=== PATIENT | female | born 2000 | race Caucasian/White ===

== ENCOUNTER 2024-02-27 16:06 | Emergency (ER) | payer MEDICAID, SELFPAY ==
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
[2024-02-27 16:12] VITALS: BP 106/70; BP 118/82; PULSE 108; PULSE 92; RESP 16; TEMP 36.3; O2SAT 100; O2SAT 99; BMI 19.3
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
[2024-02-27] MEDS: Acetaminophen 325 MG TABLET 975 MG PO (16:38)
--- OUTSIDE RECORDS SUMMARY | 2024-02-27 16:41 | XMS_ITS | Patient Health Record ---
Author Organization [facility] - So [facility] Address [address] [place] [address] Care Team Providers Care Nutrition Aide Name Role Phone Marion Cartwright Unavailable [phone] Allergies Allergen (clinical drug ingredient) Drug/Non Drug Allergy documented on EMR Reaction Allergy Type Onset Date Status amoxicillin amoxicillin Unknown Drug Allergy Act raymon Reason For Referral No Information Medications Medication SIG (Take, Route, Frequency, Duration) Notes Start Date End Date Status Zofran 4 mg 1 tab(s) orally every 8 hours, PRN Active Problems Problem Type SNOMED Code ICD Code Onset Dates Problem Status W/U Status Risk Notes Problem Unexplained visual loss (disorder) (760466604) Vision problems (H54.7) Active confirmed Plan Of Treatment No Information Insurance Providers Payer Name Payer Address Payer Phone Subscriber Number Group Number Insured Name Patient Relationship to Insured Coverage Start Date Coverage End Date COVID HRSA Uninsured [facility] CARES Act Provider Relief Fund [address] [address] [place] [address] [phone] Azam Ruano Self - patient is the insured Medications Administered Medication Instructions Date of Administration Dosage Notes Zofran Ondansetron 02/07/2021 4 uL Medical (General) History Medical History History ICD Code Vision problems H54.7 Surgical History Surgery Date(Month/Year)
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
[2024-02-27 17:21] VITALS: BP 126/64; PULSE 82; RESP 16; TEMP 36.2; O2SAT 96
[2024-02-27 17:34] LABS: UPreg QC Valid YES; Urine Pregnancy NEGATIVE (NEGATIVE)
[2024-02-27 21:03] VITALS: BP 113/70; PULSE 74; RESP 16; TEMP 36.8; O2SAT 99
[2024-02-27 21:10] VITALS: BP 113/70; PULSE 74; RESP 16; TEMP 36.8; O2SAT 99
== END 2024-02-27 21:10 | disposition home or self-care (01) ==
PROVIDERS: Nurse Practitioner Family; Emergency Provider Emergency Medicine Emergency Medical Services
DX: S60.511A Abrasion of right hand, initial encounter (principal); S00.83XA Contusion of other part of head, initial encounter; R42 Dizziness and giddiness; R11.2 Nausea with vomiting, unspecified; R51.9 Headache, unspecified; M54.2 Cervicalgia; M79.641 Pain in right hand; V43.52XA Car driver injured in collision with other type car in traffic accident, initial encounter; Y92.488 Other paved roadways as the place of occurrence of the external cause; Y99.8 Other external cause status
CPT/HCPCS: 70450; 70486; 72125; 73120; 81025; 99283